=== PATIENT | female | born 1935 | race Caucasian/White ===

== ENCOUNTER 2018-06-13 19:36 | Emergency (ER) | payer MEDICARE, OTHER ==
[~2018-06-13] VITALS: Ht 152.4 cm; Wt 57.3 kg
[~2018-06-13 19:36] MED LIST: CALC-590 PO; ESOM40CA PO; EZET1TAB2 PO; FISH OIL; FOLIC ACID 800 MCG; MULT1TAB PO; PIOG15TA6 PO; PRIM50TA29 PO; RESVERATROL; SERT100T12 PO; VITAD50000 PO
[2018-06-13] MEDS ORDERED: TRAZ-220 PO (19:55)
[2018-06-13] MEDS ORDERED: VILA40TA PO (19:55)
[2018-06-13] MEDS ORDERED: ATOR10TA84 PO (19:55)
[2018-06-13] MEDS ORDERED: FOLI0.8T PO (19:55)
[2018-06-13] MEDS ORDERED: AMLO-511 PO (19:55)
[2018-06-13] MEDS ORDERED: DOCU-202 PO (19:55)
[2018-06-13] MEDS ORDERED: CETI-290 PO (19:55)
[2018-06-13] MEDS ORDERED: BARIUM SULFATE 0.1% SUSPENSION 450 ML BOTTLE PO ONE (21:30)
[2018-06-13 22:42] VITALS: BP 143/71
== END 2018-06-13 22:45 | disposition home or self-care (01) ==
LOC: EMS 19:37
DX: K11.7 Disturbances of salivary secretion (principal); R13.10 Dysphagia, unspecified; R07.9 Chest pain, unspecified; F32.9 Major depressive disorder, single episode, unspecified; Z90.710 Acquired absence of both cervix and uterus; Z96.611 Presence of right artificial shoulder joint; Z88.5 Allergy status to narcotic agent; Z88.0 Allergy status to penicillin; Z88.2 Allergy status to sulfonamides; Z88.8 Allergy status to other drugs, medicaments and biological substances; Z88.6 Allergy status to analgesic agent; Z91.011 Allergy to milk products
CPT/HCPCS: 70360